=== PATIENT | female | born 1985 | race Caucasian/White ===

== ENCOUNTER 2016-07-14 04:19 | Emergency (ER) | payer OTHER ==
[~2016-07-14] VITALS: Ht 165.1 cm; Wt 60.0 kg
[2016-07-14 04:22] VITALS: BP 124/58; PULSE 60; RESP 16; TEMP 97.7; O2SAT 99
[2016-07-14 05:13] LABS: BACTERIA, URINE RARE /hpf; BLOOD, URINE NEG (NEG); COMMENT (UR) CULTURE INDICATED; CULTURE IF INDICATED CULTURE INDICATED; GLUCOSE,URINE NEG (NEG); KETONE, URINE NEG (NEG); MUCUS URINE FEW /lpf (OCC); NITRITE,URINE POS (NEG); PH, URINE 7.5 (5.0-8.5); RENAL EPITHELIAL CELLS <1 /hpf; SQUAMOUS EPITHELIAL CELL URINE 5 /hpf (0-5); TRANSITIONAL EPI CELLS, URINE 1 /hpf; TRIPLE PHOSPHATE CRYSTAL,URINE OCC /hpf; URINE COLOR DARK-BROWN (YELLW/STRAW)
--- NOTE | 2016-07-14 05:54 | PD ---
HPI Chief Complaint: Complaint Time Seen by Provider: 04:52 Travel History International Travel<30 days: No Contact w/Intl Traveler<30days: No Traveled to known affect area: No History of Present Illness HPI The patient is a 31 year old female who presents to the [facility] emergency department with a history of dysuria, urinary urgency, and urinary frequency that began on Tuesday. She denies having any vaginal discharge. She reports having suprapubic abdominal discomfort. She denies having any back pain or vomiting. She reports that Tuesday she began to have some loose stools. She reports that she's had or loose stools per day and Tuesday. She denies having any blood or mucus in her stool. She reports that the stool is brown in color. The patient denies any recent fevers, cough, congestion, neck pain, chest pain, shortness of breath, or neurologic symptoms. LMP June 18, 2016 [facility] Past Medical History Narrative Medical The patient's past medical history is reportedly none. Medical History: Denies Significant Hx Diminished Hearing: No Tetanus Vaccination: Unknown Influenza Vaccination: No ?: Not LMP: First week of June. Past Surgical History Narrative Surgical The patient's past surgical history is significant for none. Surgical History: No Previous Surgery Social History Alcohol Use: No Tobacco Use: No Substance Use: No Allergies-Medications (Allergen,Severity, Reaction): Coded Allergies: No Known Allergies (Unverified , 07/14/16) Reported Meds & Prescriptions Reported Meds & Active Scripts Active No Active Prescriptions or Reported Medications Review of Systems Except as stated in HPI: all other systems reviewed are Neg General / Constitutional: No: Fever Eyes: No: Visual changes HENT: No: Headaches Cardiovascular: No: Chest Pain or Discomfort Respiratory: No: Shortness of Breath Gastrointestinal: No: Nausea, Vomiting, Diarrhea, Abdominal Pain Genitourinary: Positive: Urgency, Frequency, Dysuria, No: Flank Pain, Discharge, Vaginal Bleeding Musculoskeletal: No: Pain Skin: No Rash Neurologic: No: Weakness Psychiatric: No: Depression Endocrine: No: Polydipsia Hematologic/Lymphatic: No: Easy Bruising Physical Exam Narrative General: The patient is a well-developed well-nourished female in no acute distress. Head and Neck exam: Head is normocephalic atraumatic. Eyes: EOMI, pupils are equal round and reactive to light. Nose: Midline septum with pink mucous membranes Mouth: Dentition unremarkable. Moist mucus membranes. Posterior oropharynx is not erythematous. No tonsillar hypertrophy. Uvula midline. Airway patent. Neck: No palpable lymphadenopathy. No nuchal rigidity. No thyromegaly. Cardiovascular: Regular rate and rhythm without murmurs, gallops, or rubs. Lungs: Clear to auscultation bilaterally. No wheezes, rhonchi, or rales. Abdomen: Soft, without tenderness to palpation in all 4 quadrants of the abdomen. No guarding, rebound, or rigidity. Normal bowel sounds are audible. No tenderness on palpation of McBurney's point. Extremities: No clubbing, cyanosis, or edema. No calf tenderness on palpation. Back: No costovertebral angle tenderness to palpation. Neurologic Exam: Grossly nonfocal. Skin Exam: No rash noted. Intact skin that is warm and dry. Data Data Last Documented VS Vital Signs Date Time Temp Pulse Resp B/P Pulse Ox O2 Delivery O2 Flow Rate FiO2 07/14/16 04:24 16 07/14/16 04:22 97.7 60 124/58 99 Orders Urinalysis - C+S If Indicated (07/14/16 04:52) Urine Culture (07/14/16 04:55) Sulfamet-Trimeth Ds 800-160 Mg (Bactrim (07/14/16 06:00) Labs Laboratory Tests Test 07/14/16 04:55 Urine Color DARK-BROWN Urine Turbidity HAZY Urine pH 7.5 Urine Specific [place] 1.025 Urine Protein 100 mg/dL Urine Glucose (UA) NEG mg/dL Urine Ketones NEG mg/dL Urine Occult Blood NEG Urine Nitrite POS Urine Bilirubin NEG Urine Urobilinogen GREATER THAN 12.0 MG/DL Urine Leukocyte Esterase LARGE Urine RBC 8 /hpf Urine WBC 139 /hpf Urine Squamous Epithelial 5 /hpf Cells Urine Transitional Epithelial 1 /hpf Cells Urine Renal Epithelial Cells <1 /hpf Urine Triple Phosphate OCC /hpf Crystals Urine Bacteria RARE /hpf Urine Mucus FEW /lpf Microscopic Urinalysis Comment CULTURE INDICATED MDM Medical Decision Making Medical Screen Exam Complete: Yes Emergency Medical Condition: Yes Medical Record Reviewed: Yes Differential Diagnosis Cystitis, versus pyelonephritis, versus interstitial cystitis Narrative Course During the course of the patients emergency department visit, the patients history, examination, and differential diagnosis were reviewed with the patient. The patient had a urine sent for analysis. The patients laboratory studies were reviewed and remarkable for a urinalysis that shows 100 protein positive nitrite large leukocyte esterase 8 rbc's 139 wbc 's, rare bacteria. Culture is indicated. The patient was initially provided Bactrim DS one by mouth times one. The patient will be discharged home with a prescription for Bactrim. The patient is resting comfortably and feels better, is alert and in no distress. The patients results and examination findings were discussed with the patient. The repeat examination is unremarkable and benign. The history, exam, diagnostic testing, and current condition do not suggest any significant pathology to warrant further testing, continued ED treatment, admission, or surgical evaluation at this point. The vital signs have been stable. The patient does not have uncontrollable pain, intractable vomiting, or other significant symptoms. The patient's condition is stable and appropriate for discharge. The patient will pursue further outpatient evaluation with a primary care physician or other designated or consulting physician as indicated in the discharge instructions. The patient expressed understanding and was agreeable with this plan. Diagnosis Primary Impression: Acute cystitis Qualified Code: N30.00 - Acute cystitis without hematuria Referrals: Primary Care Physician 3 days Patient Instructions: General Instructions, Urinary Tract Infection in Women ( ED) Med/Other Pt SpecificInfo: Prescription(s) given Scripts No Active Prescriptions or Reported Meds Disposition: 01 DISCHARGE HOME Condition: Stable Beatriz Khalil MD July 14, 2016 05:54
[2016-07-14] MEDS ORDERED: SULFAMETHOXAZOLE-TRIMETHOPRIM DS 800-160 MG TAB PO ONE (06:00)
[2016-07-14] MEDS ORDERED: BACT800T5 PO (06:14)
== END 2016-07-14 06:33 | disposition home or self-care (01) ==
LOC: NEPE 04:19
DX: N30.00 Acute cystitis without hematuria (principal); B95.7 Other staphylococcus as the cause of diseases classified elsewhere
CPT/HCPCS: 81001; 87077; 87086; 87186; 99283

== ENCOUNTER 2017-01-30 23:18 | Emergency (ER) | payer OTHER ==
[~2017-01-30] VITALS: Ht 167.6 cm; Wt 60.0 kg
[~2017-01-30 23:18] MED LIST: BACT800T5 PO
[2017-01-30 23:19] VITALS: BP 124/64; PULSE 58; RESP 16; TEMP 97.8; O2SAT 99
[2017-01-31] MEDS ORDERED: HYDR-3133 PO (00:24)
[2017-01-31] MEDS ORDERED: PERM5CRE11 TOPICAL (00:24)
[2017-01-31] MEDS ORDERED: TRIA.1%T TOPICAL (00:24)
--- NOTE | 2017-01-31 00:30 | PD ---
HPI Chief Complaint: Skin Problem Time Seen by Provider: 00:16 Travel History International Travel<30 days: No Contact w/Intl Traveler<30days: No Traveled to known affect area: No History of Present Illness HPI 31-year-old white female presents to emergency Department with complaints of a pruritic rash on her back and upper shoulders for the past several days. 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 The patient is concerned that she may contracted scabies. She denies any recent injuries. No recent illnesses. She has not had any shortness of breath, wheezing, glossal edema or allergic symptoms. She denies any recent changes in soap detergents or clothing. There is been no environmental changes. Symptoms are [id number]. No alleviating factors. PFSH Past Medical History Medical History: Denies Significant Hx Diminished Hearing: No Integumentary: Yes (SHINGLES IN THE PAST) Tetanus Vaccination: < 5 Years ?: Not LMP: 01/24/17 Past Surgical History Surgical History: No Previous Surgery Social History Alcohol Use: No Tobacco Use: No Substance Use: No Allergies-Medications (Allergen,Severity, Reaction): Coded Allergies: No Known Allergies (Unverified Adverse Reaction, Unknown, 01/30/17) Reported Meds & Prescriptions Reported Meds & Active Scripts Active Hydroxyzine HCl 25 Mg Tab 25 Mg PO QID PRN Triamcinolone Topical (Triamcinolone Acetonide) 0.1% Cream 1 Applic TOPICAL BID Elimite Topical (Permethrin) 5% Cream 1 Applic TOPICAL ONCE Bactrim DS (Sulfamethoxazole-Trimethoprim) 800-160 Mg Tab 1 Tab PO BID Review of Systems Except as stated in HPI: all other systems reviewed are Neg Physical Exam Narrative GENERAL: Well-developed, well-nourished in no acute distress. Nontoxic appearing. The patient's examined with Destiny winston nurse present. HEAD: Normocephalic, atraumatic. EYES: Pupils equal round and reactive. Extraocular motions intact. No scleral icterus. No injection or drainage. ENT: TMs clear without erythema. The external auditory canals clear. Nose: clear . Posterior pharynx is pink and moist. No tonsillar edema or exudate. Uvula midline. Airway patent. NECK: Trachea midline.Supple, nontender, moves head freely. No central bony tenderness or spasm. CARDIOVASCULAR: Regular rate and rhythm without murmurs, gallops, or rubs. RESPIRATORY: Clear to auscultation. Breath sounds equal bilaterally. No wheezes , rales, or rhonchi. GASTROINTESTINAL: Abdomen soft, non-tender, nondistended. No hepato-splenomegaly , or palpable masses. No guarding. EXTREMITIES: No clubbing, cyanosis, or edema. No joint tenderness, effusion, or edema noted. BACK: Nontender without deformity or crepitance. No flank tenderness. Skin: Patient has some mild erythema to the skin between her shoulder blades but no obvious lesions. The skin is excoriated. There is no erythema, edema or signs of infection. Data Data Last Documented VS Vital Signs Date Time Temp Pulse Resp B/P (MAP) Pulse Ox O2 Delivery O2 Flow Rate FiO2 01/30/17 23:19 97.8 58 16 124/64 (84) 99 Room Air Orders Orders Ed Discharge Order (01/31/17 00:25) MDM Medical Decision Making Medical Screen Exam Complete: Yes Emergency Medical Condition: Yes Medical Record Reviewed: Yes Differential Diagnosis MDM: High Differential diagnoses: Abscess, folliculitis, cellulitis, lymphangitis, abrasion, contact dermatitis, scabies Narrative Course The patient is very concerned that she may have contracted scabies from patients at work. I've agreed to treat her for potential scabies although I explained to her that this would be extremely unlikely and that her exam is not consistent with it. I suspect this is more of a contact type dermatitis. Patient is given Elimite, Atarax and triamcinolone cream. Contact dermatitis Diagnosis Primary Impression: contact dermatitis Patient Instructions: General Instructions Additional Instructions: Rest. Medications as directed. Follow-up with a medical doctor the next 3-7 days. Return to the ER if any problems. Med/Other Pt SpecificInfo: Prescription(s) given Scripts Hydroxyzine HCl (Hydroxyzine HCl) 25 Mg Tab 25 MG PO QID Y for ITCHING, #30 TAB 0 Refills Prov: Ruthie Verma MD 01/31/17 Triamcinolone Topical (Triamcinolone Topical) 0.1% Cream 1 APPLIC TOPICAL BID for Inflammation, #30 GM 1 Refill Prov: Ruthie Verma MD 01/31/17 Permethrin Topical (Elimite Topical) 5% Cream 1 APPLIC TOPICAL ONCE for Scabies, #1 TUBE 0 Refills Prov: Ruthie Verma MD 01/31/17 Disposition: 01 DISCHARGE HOME Condition: Dwain Hidalgo Jan 31, 2017 00:30
== END 2017-01-31 00:42 | disposition home or self-care (01) ==
LOC: NEPD 23:18
DX: L25.9 Unspecified contact dermatitis, unspecified cause (principal)
CPT/HCPCS: 99284